=== PATIENT | male | born 1950 | race Caucasian/White ===

== ENCOUNTER 2018-07-15 14:22 | Emergency (ER) | payer MEDICARE, OTHER ==
[2018-07-15] MEDS: IBUPROFEN 200 MG TAB PO (15:52)
== END 2018-07-15 16:07 | disposition home or self-care (01) ==
LOC: FTE 14:22
DX: S82.831A Other fracture of upper and lower end of right fibula, initial encounter for closed fracture (principal); X50.1XXA Overexertion from prolonged static or awkward postures, initial encounter; Y92.9 Unspecified place or not applicable
CPT/HCPCS: 73590; 73610-RT; 99283-25